=== PATIENT | female | born 1950 | race Caucasian/White ===

== ENCOUNTER 2019-01-20 09:33 | Day surgery (SDC) | payer MEDICARE, MEDICAID ==
[~2019-01-20] VITALS: Ht 154.9 cm; Wt 95.9 kg
[2019-01-20 09:45] VITALS: BP 174/105
[2019-01-20] MEDS ORDERED: fentaNYL/PF 50MCG/1 ML 2ML syringe ONE (09:45)
[2019-01-20] MEDS ORDERED: MIDAZolam 5mg/5ml vial ONE (09:46)
[2019-01-20] MEDS ORDERED: LIDOcaine Viscous 15ml cup ONE (09:46)
[2019-01-20] MEDS ORDERED: PANT-47 PO (10:10)
[2019-01-20] MEDS ORDERED: LISI-604 PO (10:11)
[2019-01-20] MEDS ORDERED: vitamin b1 PO (10:12)
[2019-01-20 11:35] VITALS: BP 156/93
[2019-01-20 11:45] VITALS: BP 158/79
[2019-01-20 11:55] VITALS: BP 155/100
[2019-01-20 12:05] VITALS: BP 161/86
== END 2019-01-20 12:30 | disposition home or self-care (01) ==
LOC: EDSEX 09:33 → GI LAB 09:33
PROVIDERS: ATTEND Internal Medicine Gastroenterology
DX: I85.00 Esophageal varices without bleeding (principal); K22.8 Other specified diseases of esophagus; K76.6 Portal hypertension; K31.89 Other diseases of stomach and duodenum; Z87.19 Personal history of other diseases of the digestive system
CPT/HCPCS: 43244; G0500; J2250; J3010; J7040; 99152; A4620